=== PATIENT | male | born 1955 | race Caucasian/White ===

== ENCOUNTER 2017-04-08 12:58 | Inpatient (IN) | payer OTHER ==
[~2017-04-08] VITALS: Ht 182.9 cm; Wt 88.9 kg
[2017-04-08] MEDS ORDERED: IV NS 0.9% 1,000 ML ONE (13:17)
[2017-04-08] MEDS ORDERED: IV NS 0.9% 1,000 ML BAG IV ONE (13:30)
[2017-04-08 13:36] LABS: BASOPHILS # (AUTO) 0.1 /CMM (0.0-0.2); BASOPHILS % (AUTO) 0.6 % (0.0-2.0); EOSINOPHILS # (AUTO) 0.1 /CMM (0.0-0.7); EOSINOPHILS % (AUTO) 0.9 % (0.0-6.0); HEMATOCRIT 45 % (39-51); HEMOGLOBIN 15.1 g/dL (13.5-17.5); LYMPHOCYTES # (AUTO) 1.4 /CMM (0.8-4.8); LYMPHOCYTES % (AUTO) 13.6 % (20.0-44.0); MEAN CORPUSCULAR HEMOGLOBIN 30 PG (26.0-33.0); MEAN CORPUSCULAR HGB CONC 33 g/dl (31.0-36.0); MEAN CORPUSCULAR VOLUME 89 fL (80-96); MONOCYTES # (AUTO) 0.6 /CMM (0.1-1.30); MONOCYTES % (AUTO) 5.3 % (2.0-12.0); NEUTROPHILS # (AUTO) 8.2 /CMM (1.8-8.9); NEUTROPHILS % (AUTO) 79.6 % (43.0-81.0); PLATELET COUNT (AUTO) 359 /CMM (150-450); RDW COEFFICIENT OF VARIATION 13.2 (11.5-15.0); RED BLOOD CELL COUNT(AUTO) 5.07 MIL/uL (4.5-6.0); WHITE BLOOD COUNT (AUTO) 10.4 K/uL (4.3-11.0)
[2017-04-08 13:46] LABS: CALCIUM, SERUM 8.8 mg/dL (8.5-10.1); CARBON DIOXIDE 27 mmol/L (21-32); CHLORIDE 107 mmol/L (98-107); CREATININE 1.2 mg/dL (0.6-1.3); GLUCOSE 192 mg/dL (74-106); POTASSIUM 3.8 mmol/L (3.5-5.1); SODIUM SERUM 143 mmol/L (136-145); UREA NITROGEN, BLOOD 22 mg/dL (7-18)
[2017-04-08 13:49] LABS: ALCOHOL, BLOOD < 3 mg/dL (0-0)
[2017-04-08 13:54] LABS: TROPONIN I < 0.017 ng/mL (0.00-0.056)
[2017-04-08 14:00] LABS: INR 0.97 (0.87-1.13); PROTHROMBIN TIME 10.1 SECS (9.5-12.7)
[2017-04-08] MEDS ORDERED: SITA1TAB2 PO (14:27)
[2017-04-08] MEDS ORDERED: ZOLP10TA2 PO (14:27)
[2017-04-08] MEDS ORDERED: POTA5TAB2 PO (14:27)
[2017-04-08] MEDS ORDERED: ATOR10TA PO (14:27)
[2017-04-08] MEDS ORDERED: OLME1TAB2 PO (14:27)
[2017-04-08 15:00] VITALS: BP 149/97
[2017-04-08] MEDS ORDERED: ASPI-605 PO (15:00)
[2017-04-08] MEDS ORDERED: ZOLPIDEM TARTRATE 10 MG TABLET PO SCH (15:30)
[2017-04-08] MEDS ORDERED: ATORVASTATIN 10 MG TABLET PO SCH (15:30)
[2017-04-08] MEDS ORDERED: ASPIRIN EC 81 MG TABLET.DR PO SCH (15:30)
[2017-04-08] MEDS ORDERED: POTASSIUM CITRATE 5 MEQ TABLET.SA PO SCH (15:30)
[2017-04-08] MEDS ORDERED: IV SET PRIMARY PUMP SET 1 EA INFUS.SET MC ONE (15:50)
[2017-04-08 16:00] VITALS: BP 136/86
[2017-04-08] MEDS ORDERED: ZOLPIDEM TARTRATE 5 MG TABLET PO PRN (16:00)
[2017-04-08] MEDS ORDERED: Z GUARD REMEDY 2 OZ OINT TP PRN (16:00)
[2017-04-08] MEDS ORDERED: ACETAMINOPHEN 325 MG TABLET PO PRN (16:00)
[2017-04-08] MEDS ORDERED: ONDANSETRON HCL/PF 4 MG/2 ML VIAL IVP PRN (16:00)
[2017-04-08] MEDS ORDERED: MAGNESIUM HYDROXIDE 30 ML UDC PO PRN (16:00)
[2017-04-08] MEDS ORDERED: MAG HYDROX/AL HYDROX/SIMETH 30 ML UDC PO PRN (16:00)
[2017-04-08] MEDS: IV NS 0.9% 1,000 ML IV PRN (16:01)
[2017-04-08] MEDS ORDERED: METFORMIN 500 MG TABLET PO SCH (17:00)
[2017-04-08 20:00] VITALS: BP 135/78
[2017-04-08 22:00] VITALS: BP 135/78
[2017-04-09] VITALS (8 sets, daily range): BP systolic 112–146; BP diastolic 63–89
[2017-04-09] MEDS: IV NS 0.9% 1,000 ML IV PRN (06:10)
[2017-04-09] MEDS ORDERED: LINAGLIPTIN 5 MG TABLET PO SCH (09:00)
[2017-04-09] MEDS ORDERED: POTASSIUM CITRATE 5 MEQ TABLET.SA PO SCH (09:00)
[2017-04-09] MEDS ORDERED: ASPIRIN EC 81 MG TABLET.DR PO SCH (09:00)
[2017-04-09] MEDS ORDERED: IV NS 0.9% 1,000 ML IV PRN (09:27)
[2017-04-09] MEDS ORDERED: MIDAZOLAM HCL 2 MG/2ML VIAL IV ONE (10:00)
[2017-04-09] MEDS: METFORMIN 500 MG TABLET PO SCH ×2 (10:09→18:09)
[2017-04-09] MEDS: HYDROCHLOROTHIAZIDE PO SCH ×2 (10:09→10:15)
[2017-04-09] MEDS: OLMESARTAN PO SCH ×2 (10:09→10:15)
[2017-04-09] MEDS ORDERED: MIDAZOLAM HCL 2 MG/2ML VIAL IV PRN (10:30)
[2017-04-09 11:05] LABS: BASOPHILS % (AUTO) 0.3 % (0.0-2.0); EOSINOPHILS % (AUTO) 0.4 % (0.0-6.0); HEMATOCRIT 41 % (39-51); HEMOGLOBIN 14.2 g/dL (13.5-17.5); LYMPHOCYTES # (AUTO) 1.4 /CMM (0.8-4.8); LYMPHOCYTES % (AUTO) 15.5 % (20.0-44.0); MEAN CORPUSCULAR HEMOGLOBIN 31 PG (26.0-33.0); MEAN CORPUSCULAR HGB CONC 34 g/dl (31.0-36.0); MEAN CORPUSCULAR VOLUME 89 fL (80-96); MONOCYTES # (AUTO) 0.8 /CMM (0.1-1.30); MONOCYTES % (AUTO) 8.4 % (2.0-12.0); NEUTROPHILS % (AUTO) 75.4 % (43.0-81.0); PLATELET COUNT (AUTO) 306 /CMM (150-450); RDW COEFFICIENT OF VARIATION 13.8 (11.5-15.0); RED BLOOD CELL COUNT(AUTO) 4.64 MIL/uL (4.5-6.0); WHITE BLOOD COUNT (AUTO) 9.3 K/uL (4.3-11.0)
[2017-04-09 11:16] LABS: CALCIUM, SERUM 8.8 mg/dL (8.5-10.1); POTASSIUM 3.9 mmol/L (3.5-5.1)
[2017-04-09 12:29] LABS: ALBUMIN 3.6 g/dL (3.4-5.0); MAGNESIUM 1.9 mg/dL (1.8-2.4); TOTAL PROTEIN, SERUM 6.5 g/dL (6.4-8.2)
[2017-04-09 13:06] LABS: THYROID STIMULATING HORMONE 1.389 uIU/mL (0.358-3.74)
[2017-04-09] MEDS ORDERED: LORAZEPAM INJ 2 MG/ML VIAL IV ONE (14:00)
[2017-04-09] MEDS ORDERED: ATORVASTATIN 10 MG TABLET PO SCH (22:00)
== END 2017-04-09 18:45 | disposition home or self-care (01) | DRG 103 ==
LOC: ER 12:59 → TELE1 14:18
PROVIDERS: ADMIT Internal Medicine; ATTEND Internal Medicine
DX: F07.81 Postconcussional syndrome (principal); V43.52XA Car driver injured in collision with other type car in traffic accident, initial encounter; I10 Essential (primary) hypertension; E78.5 Hyperlipidemia, unspecified; E11.9 Type 2 diabetes mellitus without complications; G45.4 Transient global amnesia; R79.89 Other specified abnormal findings of blood chemistry; Y93.9 Activity, unspecified; Y92.410 Unspecified street and highway as the place of occurrence of the external cause; S00.83XA Contusion of other part of head, initial encounter; M48.02 Spinal stenosis, cervical region; R55 Syncope and collapse
CPT/HCPCS: 36415; 70450-TC; 70553-TC; 71010-TC; 72125-TC; 72170-TC; 73030-TC; 80048-TC; 80053-TC; 80061-TC; 80305; 82306; 82962-TC; 83735-TC; 84100-TC; 84439-TC; 84443-TC; 84484-TC; 85025-TC; 85730-TC; 87081-TC; 93307-TC; 95819-TC; A4606; G0480; J2060; J7030; Z7610